=== PATIENT | male | born 1980 | race Caucasian/White ===

== ENCOUNTER → 2020-08-11 | Outpatient (CLI) | payer OTHER ==
[~2020-08-11] MED LIST: ISOVUE-370 76% 100ML VIAL As Ordered ONE
--- NOTE | 2020-08-11 09:35 | REPVR ---
PROCEDURE INFORMATION: Exam: CT Head Without And With Contrast Exam date and time: 08/11/2020 9:05 AM Age: 39 years old Clinical indication: Pain; Other: Seizures TECHNIQUE: Imaging protocol: Computed tomography of the head without and with intravenous contrast. Radiation optimization: All CT scans at this facility use at least one of these dose optimization techniques: automated exposure control; mA and/or kV adjustment per patient size (includes targeted exams where dose is matched to clinical indication); or iterative reconstruction. Contrast material: ISOVUE 370; Contrast volume: 75 ml; Contrast route: INTRAVENOUS (IV); COMPARISON: No relevant prior studies available. FINDINGS: Brain: No hemorrhage or mass effect. Normal coyle/white matter delineation. No abnormal enhancement. Cerebral ventricles: No ventriculomegaly. Bones/joints: Unremarkable. No acute fracture. Paranasal sinuses: Visualized sinuses are unremarkable. No fluid levels. Mastoid air cells: Visualized mastoid air cells are well aerated. Soft tissues: Unremarkable. IMPRESSION: No acute intracranial abnormality. Electronically signed by: Radha Boyce On 08/11/2020 09:35:21 AM
== END ==
LOC: M RAD 08:50
PROVIDERS: ATTEND Psychiatry & Neurology Neurology
DX: R56.9 Unspecified convulsions (principal)
CPT/HCPCS: 70470; Q9967

== ENCOUNTER 2024-04-24 13:14 | Emergency (ER) | payer MEDICAID, OTHER ==
[~2024-04-24] VITALS: Ht 172.7 cm; Wt 75.2 kg
[2024-04-24] MEDS ORDERED: ASPI81CH48 (13:27)
[2024-04-24] MEDS ORDERED: CARB1TAB20 (13:27)
[2024-04-24] MEDS ORDERED: METO1TAB33 (13:27)
[2024-04-24] MEDS ORDERED: ATOR80TA59 (13:27)
[2024-04-24] MEDS ORDERED: CARB20TA PO (18:05)
[2024-04-24] MEDS ORDERED: LIPI20TA PO (18:05)
[2024-04-24] MEDS ORDERED: CARB1TAB20 PO (18:14)
[2024-04-24 18:30] VITALS: BP 132/64; TEMP 97.2; O2SAT 100
== END 2024-04-24 18:32 | disposition home or self-care (01) ==
LOC: EDBD 13:14 → M ED 13:14
DX: G40.909 Epilepsy, unspecified, not intractable, without status epilepticus (principal); M47.892 Other spondylosis, cervical region; E78.5 Hyperlipidemia, unspecified; I10 Essential (primary) hypertension; Z88.0 Allergy status to penicillin; Z79.82 Long term (current) use of aspirin; Z79.02 Long term (current) use of antithrombotics/antiplatelets; Z79.899 Other long term (current) drug therapy; Z95.0 Presence of cardiac pacemaker

== ENCOUNTER → 2024-06-27 | Outpatient (REF) | payer OTHER ==
[~2024-06-27] MED LIST changes: +ASPI81CH48; +ATOR80TA59; +CARB1TAB20; +CARB1TAB20 PO; +CARB20TA PO; -ISOVUE-370 76% 100ML VIAL As Ordered ONE; +LIPI20TA PO; +METO100T5 PO; +METO1TAB33
[2024-06-27 13:08] LABS: ALBUMIN 4.2 G/DL (3.2-5.2); ALKALINE PHOSPHATASE 78 U/L (40-129); ALT/SGPT 16 U/L (7.0-40); AST/SGOT 10 U/L (<34); BILIRUBIN,TOTAL 0.4 MG/DL (0.3-1.2); BLOOD UREA NITROGEN 12 MG/DL (9-23); CALCIUM LEVEL 9.2 MG/DL (8.5-10.1); CARBON DIOXIDE LEVEL 32 MMOL/L (20-31); CHLORIDE LEVEL 106 MMOL/L (98-107); CREATININE FOR GFR 0.92 MG/DL (0.70-1.30); GLOMERULAR FILTRATION RATE > 60.0 (>60); GLUCOSE, FASTING 52 MG/DL (60-100); POTASSIUM SERUM 4.4 MMOL/L (3.5-5.1); SODIUM LEVEL 145 MMOL/L (136-145); TOTAL PROTEIN 7.2 G/DL (5.7-8.2)
== END ==
LOC: M LAB REF 12:37
PROVIDERS: ATTEND Physician Assistant Medical
DX: E87.5 Hyperkalemia (principal)

== ENCOUNTER 2024-07-08 06:11 | Emergency (ER) | payer MEDICAID, OTHER, SELFPAY ==
[~2024-07-08] VITALS: Ht 172.7 cm; Wt 65.0 kg
[~2024-07-08 06:11] MED LIST changes: -METO100T5 PO
[2024-07-08 07:10] LABS: VENOUS BASE EXCESS -3.2 (-2.0-2.0); VENOUS HCO3 20.8 MMOL/L (23.0-27.0); VENOUS PARTIAL PRESSURE CO2 34.3 mmHg (38.0-50.0); VENOUS PARTIAL PRESSURE O2 121.1 mmHg (30.0-50.0); VENOUS STANDARD HCO3 21.9 MMOL/L; VENOUS TOTAL CO2 21.8 MMOL/L (24.0-28.0)
[2024-07-08 07:11] LABS: IONIZED CALCIUM 4.6 MG/DL (4.5-5.3)
[2024-07-08 07:12] LABS: BASO % 0.7 % (0.0-1.0); EOS # 0.1 10^3/uL (0.0-0.5); EOS % 1.1 % (0.0-3.0); HEMATOCRIT 40.5 % (42.0-52.0); HEMOGLOBIN 14.2 g/dl (13.5-17.5); LYMPH % 15.6 % (24.0-44.0); MEAN CORPUSCULAR HEMOGLOBIN 32.3 pg (27.0-33.0); MEAN CORPUSCULAR HGB CONC 35.1 g/dl (32.0-36.5); MEAN CORPUSCULAR VOLUME 92.3 fl (80.0-96.0); MONO # 0.5 10^3/uL (0.0-0.8); MONO % 7.8 % (2.0-8.0); NEUTROPHILS # 4.5 10^3/uL (1.5-8.5); PLATELET COUNT, AUTOMATED 161 10^3/uL (150-450); RED BLOOD COUNT 4.39 10^6/uL (4.30-6.10); WHITE BLOOD COUNT 6.1 10^3/uL (4.0-10.0)
[2024-07-08 08:06] LABS: ALBUMIN 3.9 G/DL (3.2-5.2); ALKALINE PHOSPHATASE 75 U/L (40-129); ALT/SGPT 14 U/L (7.0-40); AST/SGOT 14 U/L (<34); BILIRUBIN,DIRECT 0.2 MG/DL (<0.4); BILIRUBIN,TOTAL 0.4 MG/DL (0.3-1.2); BLOOD UREA NITROGEN 13 MG/DL (9-23); CALCIUM LEVEL 8.9 MG/DL (8.5-10.1); CARBON DIOXIDE LEVEL 24 MMOL/L (20-31); CHLORIDE LEVEL 104 MMOL/L (98-107); CREATININE FOR GFR 0.99 MG/DL (0.70-1.30); GLOMERULAR FILTRATION RATE > 60.0 (>60); GLUCOSE, FASTING 98 MG/DL (60-100); POTASSIUM SERUM 4.3 MMOL/L (3.5-5.1); SODIUM LEVEL 143 MMOL/L (136-145); TOTAL PROTEIN 6.8 G/DL (5.7-8.2)
[2024-07-08 08:32] LABS: PHOSPHORUS LEVEL 2.8 MG/DL (2.5-4.9)
[2024-07-08] MEDS ORDERED: METO100T5 PO (08:50)
[2024-07-08] MEDS ORDERED: HOME MED LIST COMPLETE! XX SCH (08:55)
[2024-07-08] MEDS: levETIRAcetam INJection 500 MG in DEXTROSE 5% (D5W) MINI-BAG PLU 100 ML IV ONE (13:45)
[2024-07-08 14:00] VITALS: BP 111/56
[2024-07-08 14:01] VITALS: O2SAT 97
[2024-07-08 14:23] VITALS: TEMP 97.3
== END 2024-07-08 14:21 | disposition home or self-care (01) ==
LOC: EDBD 06:11 → M ED 06:11
DX: R56.9 Unspecified convulsions (principal); I42.9 Cardiomyopathy, unspecified; Z79.899 Other long term (current) drug therapy; Z88.0 Allergy status to penicillin; Z95.0 Presence of cardiac pacemaker
CPT/HCPCS: 80048; 80076; 80156; 82140; 82330; 82803; 83605; 83735; 84100; 85025; 93005; 93041; 96365; 99285; J1953